=== PATIENT | female | born 1950 | race Caucasian/White ===

== ENCOUNTER → 2017-03-07 | Outpatient (CLI) | payer MEDICARE, OTHER ==
[~2017-03-07] MED LIST: IRBE300T9; LIRA0.6P SQ; NAPR-243 PO; NF-VAL40T PO; OMG1KC PO; SITA50TA; TRM50T PO
--- NOTE | 2017-03-08 19:50 | Diagnostic Imaging Report ---
Digital mammogram bilateral screening with tomosynthesis. This study was compared to the prior exams of 02/20/2016, 11/14/2015, and 11/03/2014. At this time, there are no current complaints. The current study was also evaluated with a Computer Aided Detection (CAD) system. The fibroglandular tissue in both breasts is heterogeneously dense. This does limit the sensitivity of this exam. When compared to the prior study, there does not appear to have been any significant change. There is no primary or secondary sign of malignancy noted. The 3D tomographic views also fail to show any sign of malignancy. IMPRESSION: There is no evidence of malignancy. Dictated on workstation # [id number]
== END ==
LOC: RAD 13:15
PROVIDERS: ATTEND Nurse Practitioner Family
DX: Z12.31 Encounter for screening mammogram for malignant neoplasm of breast (principal)
CPT/HCPCS: 77067

== ENCOUNTER → 2021-10-02 | Outpatient (CLI) | payer MEDICARE, OTHER ==
[~2021-10-02] VITALS: Ht 162.6 cm; Wt 89.8 kg
== END ==
LOC: DSME 14:25
PROVIDERS: ATTEND Family Medicine
DX: E11.9 Type 2 diabetes mellitus without complications (principal); I10 Essential (primary) hypertension